=== PATIENT | female | born 1985 | race Caucasian/White ===

== ENCOUNTER → 2016-09-13 | Day surgery (SDC) | payer OTHER ==
[~2016-09-13] MED LIST: ALBUTEROL17 GM INH; ATARAX PO; AURALGAN EAR DR14 ML AD; AURALGAN EAR DROPS; BACITRACIN30 GM TOP; BACTRIM DS TABL1 TA1 PO; BACTROBAN22 GM TP; CELEXA; CELEXA PO; CELEXA20 MG PO; CIPRO PO; CIPRO250 MG PO; CLEOCIN PO; E-MYCIN250 MG PO; EPINEPHRIN0.3 MG/0.1 IM; FLEXERIL10 M1 PO; HYDROCORTISONE30 G2 EXT; IBUPROFEN PO; MACRODANTIN PO; MIRALAX17 GM DOB; NAPROXEN; NO MEDICATIONS; PHENERGAN PO; PHENERGAN/CODEIN5 ML PO; PHENERGAN25 M1 PO; PHENERGAN25 MG PO; PREDNISONE PO; PREDNISONE10 MG PO; PRENATAL MULITV1 TAB PO; PROCTOFOAM-HC10 G1; ROBAXIN PO; ROBAXIN500 MG PO; TYLENOL #3 PO; VICODIN PO; VOLTAREN50 MG PO; VOLTAREN75 MG PO; WELLBUTRIN PO; ZITHROMAX PO; ZYRTEC PO; [UNRECOGNIZED DRUG - OTHER]
--- NOTE | ~2016-09-13 | OR ---
Unit #: [id number] #: [id number] Patient: GIN ANDRADE [id number] [address] [address] [id number] MR#: [id number] NAME: GIN ANDRADE ROOM: Date of Procedure: 09/13/2016 Admission Date: 09/13/2016 Surgeon: Isaias Mack M.D. : 1985 Attending Physician: Isaias Mack M.D. OPERATIVE REPORT PRIMARY CARE PHYSICIAN Ji Burch M.D. PREOPERATIVE DIAGNOSES The patient came for a screening colonoscopy. She has a family history of colon cancer in her father. In addition, she also has intermittent history of hematochezia. PROCEDURES PERFORMED 1. Colonoscopy and polypectomy. 2. Colonoscopy and internal hemorrhoidal band ligation. POSTOPERATIVE DIAGNOSES 1. The patient had a 1.5 cm sessile polyp in the cecum adjacent to appendiceal orifice. The latter was removed using snare cautery polypectomy. 2. There were medium-sized internal hemorrhoids. The largest of these was treated using rubber band ligation. 3. Rest of the examination up to cecum and terminal ileum was normal. The quality of the prep was excellent. RECOMMENDATIONS 1. Follow up the results of polyp histology. 2. Consider repeat examination of the colon in 3 to 5 years. 3. The patient will be followed up in the office in 3 months' time. SEDATION USED MAC. DESCRIPTION OF PROCEDURE Following detailed explanation of the potential risks and complications of a colonoscopy, namely perforation, bleeding, and complication related to sedation, the patient was brought to GI lab and laid in the left lateral decubitus position. A digital rectal examination was performed. The latter revealed presence of external and internal hemorrhoids. No palpable masses were felt. Lubricated tip of the Olympus video colonoscope was inserted through the anus and advanced under direct vision. The scope was advanced past rectosigmoid into descending colon. No diverticula were noticed in this area. The scope tip was then navigated all the way up to cecum with visualization of the ileocecal valve and the appendiceal orifice. Preparation was excellent with good visualization and photodocumentation was obtained. Last few inches of the Unit #: [id number] #: [id number] Patient: ANDRADE,GIN terminal ileum were also visualized after intubation of the ileocecal valve and appeared normal. Successive segments of the colonic mucosa were examined upon withdrawal. A single sessile polyp was noted in the cecum. This was about 1.5 cm in size and sessile. It was removed using snare cautery polypectomy. The polyp was retrieved and sent for histology. Excellent hemostasis was achieved and photodocumentation was obtained. No additional polyps were noted. The patient did not have any diverticulosis. She did however had medium-sized internal hemorrhoids. The scope was then withdrawn and the patient returned to the recovery area. A rapid shooter band ligator assembly was mounted on the scope tip and the patient was reintubated in the retroflexed position. One of the largest of the hemorrhoids were treated using rubber band ligation. Excellent hemostasis was achieved and photodocumentation was obtained. The scope was then withdrawn. The patient returned to the recovery area. She tolerated the procedure without any postprocedure complications. Dictated by... Alba Major/jyothi TD: 09/14/2016 02:00 JOB #: [id number] CC: Ji Burch M.D. OPERATIVE REPORT Page 1 of 1 X Isaias Mack MD X PROCEDURE OPERATIVE NOTE
== END | disposition home or self-care (01) ==
LOC: COPS 08:23
DX: Z12.11 Encounter for screening for malignant neoplasm of colon (principal); D12.0 Benign neoplasm of cecum; K64.8 Other hemorrhoids; K64.4 Residual hemorrhoidal skin tags; J45.909 Unspecified asthma, uncomplicated; F17.210 Nicotine dependence, cigarettes, uncomplicated; Z87.440 Personal history of urinary (tract) infections; Z80.0 Family history of malignant neoplasm of digestive organs; Z88.0 Allergy status to penicillin; Z88.1 Allergy status to other antibiotic agents; Z88.2 Allergy status to sulfonamides; Z88.8 Allergy status to other drugs, medicaments and biological substances; Z90.89 Acquired absence of other organs
CPT/HCPCS: 84703; 88305; J2250